=== PATIENT | male | born 1995 | race Caucasian/White ===

== ENCOUNTER 2020-01-17 11:43 | Emergency (ER) | payer OTHER ==
[~2020-01-17] VITALS: Ht 177.8 cm; Wt 83.9 kg
[2020-01-17 12:03] VITALS: BP 133/91; Ht 177.8 cm; Wt 83.9 kg
== END 2020-01-17 12:26 | disposition home or self-care (01) ==
LOC: ED 11:43
DX: B34.9 Viral infection, unspecified (principal); Z20.828 Contact with and (suspected) exposure to other viral communicable diseases
CPT/HCPCS: U0003-CS